=== PATIENT | female | born 1960 | race Two or more races ===

== ENCOUNTER 2017-08-04 13:44 | Emergency (ER) | payer BC ==
[2017-08-04 14:23] VITALS: BP 123/60
--- NOTE | 2017-08-04 14:55 | UC ---
Lower Extremity/Ankle HPI - HPI Summary HPI Summary: LEFT LOWER LEG PAIN X 6 WEEKS NO KNOWN INJURY , INCREASE PAIN WITH WALKING/ RUNNING NO SWELLING , NO REDNESS - History of Current Complaint Chief Complaint: UCLowerExtremity Stated Complaint: LEFT LEG/KNEE PAIN Time Seen by Provider: 08/04/17 14:29 Hx Obtained From: Patient ?: No Onset/Duration: Gradual Onset, Lasting Weeks - 6, Still Present Severity Initially: Moderate Severity Currently: Moderate Pain Intensity: 4 Pain Scale Used: 0-10 Numeric Aggravating Factor(s): Standing, Ambulation Alleviating Factor(s): Rest, Elevation, Ice Able to Bear Weight: Yes - Allergies/Home Medications Allergies/Adverse Reactions: Allergies Allergy/AdvReac Type Severity Reaction Status Date / Time No Known Allergies Allergy Verified 08/04/17 14:13 PMH/Surg Hx/FS Hx/Imm Hx Previously Healthy: Yes - Surgical History Surgical History: Yes Surgery Procedure, Year, and Place: RIGHT lumpectomy. LEFT port for chemo 2016. Hysterectomy - Family History Known Family History: Negative: Diabetes - Social History Alcohol Use: Occasionally Substance Use Type: None Smoking Status (MU): Never Smoked Tobacco - Immunization History Most Recent Influenza Vaccination: NOT YET 2017 Review of Systems Constitutional: Negative Skin: Negative Eyes: Negative ENT: Negative Respiratory: Negative Psychological: Anxious Is Patient Immunocompromised?: No All Other Systems Reviewed And Are Negative: Yes Physical Exam Triage Information Reviewed: Yes Appearance: Well-Appearing, No Pain Distress, Well-Nourished Vital Signs: Initial Vital Signs Temp 98 F 08/04/17 14:13 Pulse 56 08/04/17 14:13 Resp 16 08/04/17 14:13 BP 123/60 08/04/17 14:13 Pulse Ox 100 08/04/17 14:13 Vital Signs Reviewed: Yes Eyes: Positive: Conjunctiva Clear ENT Exam: Normal ENT: Positive: Normal ENT inspection, Hearing grossly normal, Pharynx normal Neck exam: Normal Neck: Positive: Supple, Nontender Respiratory: Positive: Chest non-tender, Lungs clear, Normal breath sounds Cardiovascular: Positive: RRR, No Murmur, Pulses Normal Abdominal Exam: Normal Musculoskeletal: Positive: Other: - LEFT LOWER LEG: NO SWELLING, NO ERYTHEMA, NO CALF TENDERNESS, + TENDERNESS LATERAL LEFT LOWE LEG Skin Exam: Normal Lower Extremity Course/Dx - Differential Dx/Diagnosis Provider Diagnoses: MUSCLE STRAIN LEFT LOWER LEG Discharge - Discharge Plan Condition: Stable Disposition: HOME Prescriptions: Naproxen [Naproxen 500 mg] 500 mg PO BID #20 tab Patient Education Materials: Muscle Strain (ED) Additional Instructions: CONT. WITH REST, NO HIGH IMPACT EXERCISES/ RUNNING STRETCHING NAPROXEN 2 X PER DAY FOLLOW UP IF NOT BETTER IN 2 WEEKS
== END 2017-08-04 14:45 | disposition home or self-care (01) ==
LOC: UCCORT 13:44
DX: S86.912A Strain of unspecified muscle(s) and tendon(s) at lower leg level, left leg, initial encounter (principal); X58.XXXA Exposure to other specified factors, initial encounter; Y93.9 Activity, unspecified; Y92.9 Unspecified place or not applicable
CPT/HCPCS: 99212; G0463

== ENCOUNTER 2020-01-17 07:44 | Emergency (ER) | payer BC ==
[2020-01-17 07:57] VITALS: BP 127/73
--- NOTE | 2020-01-17 08:09 | UC ---
Respiratory Complaint HPI - HPI Summary HPI Summary: cough x 2 days cough is dry , worse with deep breathing, better with mucinex nasal congestion , pnd, denies any sore throat, no fever, no chills - History of Current Complaint Chief Complaint: UCRespiratory Stated Complaint: CONGESTION Time Seen by Provider: 01/17/20 07:58 Hx Obtained From: Patient ?: No Onset/Duration: Gradual Onset, Lasting Days - 2, Still Present Timing: Constant Severity Initially: Moderate Severity Currently: Moderate Pain Intensity: 0 Character: Cough: Nonproductive Aggravating Factors: Exertion, Deep Breaths Alleviating Factors: Nothing Associated Signs And Symptoms: Positive: Wheezing, URI, Nasal Congestion. Negative: Dyspnea, Fever, Chills, Pleuritic Chest Pain, Hemoptysis, Dizziness, Calf Pain, Calf Swelling, Edema, Hoarseness, Sinus Discomfort - Allergies/Home Medications Allergies/Adverse Reactions: Allergies Allergy/AdvReac Type Severity Reaction Status Date / Time adhesive Allergy Rash Verified 01/17/20 07:53 Home Medications: Home Medications Dextromethorphan Polistirex [Delsym] 30 mg PO Q12H PRN 01/17/20 [History Confirmed 01/17/20] Ibuprofen/Pseudoephedrine HCl [Advil Cold & Sinus Caplet] 1 tab PO Q4H PRN 01/16 [History Confirmed 01/17/20] PMH/Surg Hx/FS Hx/Imm Hx Cancer History: Breast Cancer - Surgical History Surgical History: Yes Surgery Procedure, Year, and Place: RIGHT lumpectomy. LEFT port for chemo 2015. Hysterectomy - Family History Known Family History: Negative: Diabetes - Social History Alcohol Use: Occasionally Substance Use Type: None Smoking Status (MU): Former Smoker Length of Time of Smoking/Using Tobacco: 1/2 PPD x 20 Years When Did the Patient Quit Smoking/Using Tobacco: 2009 - Immunization History Most Recent Influenza Vaccination: NOT YET 2017 Review of Systems All Other Systems Reviewed And Are Negative: Yes Constitutional: Positive: Negative Skin: Positive: Negative Eyes: Positive: Negative ENT: Positive: Nasal Discharge, Sinus Congestion. Negative: Sore Throat, Ear Ache Respiratory: Positive: Cough Is Patient Immunocompromised?: No Physical Exam Triage Information Reviewed: Yes Appearance: Well-Appearing, No Pain Distress, Well-Nourished Vital Signs: Initial Vital Signs Temp 99.1 F 01/17/20 07:52 Pulse 74 01/17/20 07:52 Resp 16 01/17/20 07:52 BP 127/73 01/17/20 07:52 Pulse Ox 100 01/17/20 07:52 Vital Signs Reviewed: Yes Eye Exam: Normal Eyes: Positive: Conjunctiva Clear ENT: Positive: Normal ENT inspection, Hearing grossly normal, Pharynx normal, TMs normal. Negative: Nasal congestion, Nasal drainage Neck: Positive: Supple, Nontender, No Lymphadenopathy Respiratory: Positive: Chest non-tender, Lungs clear, Normal breath sounds, No respiratory distress Cardiovascular: Positive: RRR, No Murmur, Pulses Normal Respiratory Course/Dx - Differential Dx/Diagnosis Provider Diagnosis: URI (upper respiratory infection) Discharge ED - Sign-Out/Discharge Documenting (check all that apply): Patient Departure All imaging exams completed and their final reports reviewed: No Studies - Discharge Plan Condition: Stable Disposition: HOME Patient Education Materials: Upper Respiratory Infection (ED) Forms: *Work Release Referrals: Clotilde Shaffer MD [Primary Care Provider] - If Needed - Billing Disposition and Condition Condition: STABLE Disposition: Home
== END 2020-01-17 08:08 | disposition home or self-care (01) ==
LOC: UCCORT 07:44
DX: J06.9 Acute upper respiratory infection, unspecified (principal); Z87.891 Personal history of nicotine dependence; Z85.3 Personal history of malignant neoplasm of breast; Z91.09 Other allergy status, other than to drugs and biological substances
CPT/HCPCS: 99211; G0463